=== PATIENT | male | born 1945 | race American Indian/Alaskan Native ===

== ENCOUNTER 2019-02-25 08:43 | Outpatient (CLI) | payer MEDICARE ==
--- NOTE | 2019-02-25 13:09 | Cat Scan Report ---
CT ABDOMEN AND PELVIS WITH CONTRAST HISTORY: MALIGNANT NEOPLASM OF PROSTATE. Restaging of prostate cancer. COMPARISON: None. TECHNIQUE: Axial CT images were obtained through the abdomen and pelvis after 100 cc of Omnipaque 300 intravenously. Sagittal and coronal reformatted images. All CT scans at this location are performed using CT dose reduction for ALARA by means of automated exposure control. FINDINGS: CT ABDOMEN: Lung Bases: Clear. Liver: No significant abnormality. Biliary: No significant abnormality. Spleen: No significant abnormality. Unenlarged. Pancreas: No significant abnormality. Adrenals: No significant abnormality. Kidneys: The kidneys are normal size, contour and position. No evidence for mass, cystic disease or h ydronephrosis. A 6 x 3 mm calyceal stone is noted near mid pole of the left kidney. The ureters are n ormal course and caliber. Lymphatics: No lymphadenopathy. Vasculature: No significant abnormality. Bowel/Peritoneum: No significant abnormality. No free air. No free fluid. Normal appendix. CT PELVIS: : The prostate gland is unremarkable measuring 3.9 cm in diameter. Osseous Structures: Moderate thoracolumbar spondylosis is identified. No evidence for fracture or aurea picious bony lesion. Additional Findings: A small right inguinal hernia containing fat and a small portion of the bladder dome is identified. The remainder of the bladder is unremarkable. IMPRESSION: No evidence for metastatic disease to the abdomen or pelvis. Left renal stone, nonobstructing. Small right inguinal hernia containing fat and a small segment of the bladder dome. Signer Name: Chester Quiros Jr, MD Signed: 02/25/2019 1:05 PM Workstation Name: [id number]
--- NOTE | 2019-02-25 13:26 | Nuclear Medicine Report ---
WHOLE BODY BONE SCAN HISTORY: Malignant neoplasm prostate COMPARISON: No prior exam or report is available for direct comparison. TECHNIQUE: Following administration of Tc-99m MDP, static whole body anterior and posterior delayed p hase images were acquired. RADIOPHARMACEUTICAL: 25 mCi Tc-99m MDP. FINDINGS: No significantly abnormal uptake. Normal physiologic background activity. Additional Findings: Contamination at the right distal forearm. IMPRESSION: 1. No significant abnormality. Signer Name: Messi Reyes MD Signed: 02/25/2019 1:21 PM Workstation Name: [id number]
== END 2019-02-25 08:44 | disposition home or self-care (01) ==
LOC: NM 08:43
PROVIDERS: ATTEND Urology
DX: K40.90 Unilateral inguinal hernia, without obstruction or gangrene, not specified as recurrent (principal); N20.0 Calculus of kidney; M47.814 Spondylosis without myelopathy or radiculopathy, thoracic region; C61 Malignant neoplasm of prostate
CPT/HCPCS: 74176; 78306; A9503

== ENCOUNTER 2019-05-10 06:06 | Observation (INO) | payer MEDICARE ==
--- NOTE | 2019-05-06 09:58 | Anesthesia Consultation ---
Anesthesia Consult and Med Hx Date of service: 05/10/19 - Airway Anesthetic Teeth Evaluation: Dentures (Complete upper; partial lower), Partials, Edentulous (Top) ROM Head & Neck: Adequate Mental/Hyoid Distance: Adequate Mallampati Class: Class II Intubation Access Assessment: Good - Pre-Operative Health Status ASA Pre-Surgery Classification: ASA3 Proposed Anesthetic Plan: General - Pulmonary Hx Smoking: Yes (STOPPED 1970) Hx Sleep Apnea: No (ANDREW PRE SCREEN HIGH RISK.) - Cardiovascular System Hx Hypertension: Yes (2009) Hx Coronary Artery Disease: Yes (CABG 2009; Sees director post q3 months) Hx Heart Attack/AMI: No (+Cardiac clearance on chart) Hx Heart Murmur: Yes - Other Systems Hx Cancer: Yes (Prostate)
[2019-05-06 10:14] LABS: INR 1.03 (0.87-1.13)
[2019-05-06 10:15] LABS: Partial Thromboplastin Time 27.9 Sec. (24.2-36.6)
[2019-05-06 10:17] LABS: Basophils % (Auto) 0.3 % (0.0-1.8); Eosinophils # (Auto) 0.1 K/mm3 (0.0-0.4); Eosinophils % (Auto) 3.1 % (0.0-4.3); Hematocrit 42.8 % (35.5-45.6); Hemoglobin 13.6 gm/dl (11.8-15.2); Lymphocytes # (Auto) 1.4 K/mm3 (1.2-5.4); Lymphocytes % (Auto) 29.5 % (13.4-35.0); Mean Corpuscular HGB Conc 32 % (32-34); Mean Corpuscular Volume 79 fl (84-94); Monocytes # (Auto) 0.4 K/mm3 (0.0-0.8); Monocytes % (Auto) 9.2 % (0.0-7.3); Platelet Count 151 K/mm3 (140-440); Red Blood Count 5.44 M/mm3 (3.65-5.03)
[2019-05-06 10:38] LABS: Albumin 3.9 g/dL (3.9-5); Calcium 9.4 mg/dL (8.4-10.2)
[~2019-05-10 06:06] MED LIST: BACTERIOSTATIC SODIUM CHLORIDE 0.9% 30 ML VIAL INFILTRATI ONE; LACTATED RINGERS 1,000 ML IV SCH
[2019-05-10] MEDS ORDERED: ONDANSETRON 4 MG/2 ML INJ IV PRN ×2 (07:11→10:56)
[2019-05-10] MEDS ORDERED: HYDROmorphone 1 MG/1 ML INJ IV PRN (07:11)
--- NOTE | 2019-05-10 07:11 | Anesthesia Day of Surgery ---
Anesthesia Day of Surgery - Day of Surgery Patient Examined: Yes Patient H&P Reviewed: Yes Patient is NPO: Yes
[2019-05-10] MEDS ORDERED: ROCURONIUM 50 MG/5 ML INJ IV ONE ×2 (07:12→10:32)
[2019-05-10] MEDS ORDERED: LIDOCAINE MPF (2%) 20 MG/1 ML VIAL 5 ML ONE (07:12)
[2019-05-10] MEDS ORDERED: fentaNYL 100 MCG/2 ML INJ ONE ×2 (07:12→09:50)
[2019-05-10] MEDS ORDERED: PROPOFOL 200 MG/20 ML VIAL IV ONE (07:13)
[2019-05-10] MEDS ORDERED: METHYLENE BLUE 50 MG/10 ML AMP ONE (07:22)
[2019-05-10] MEDS ORDERED: CITRIC ACID-SOD CITRATE 500 ML IV ONE (07:22)
[2019-05-10] MEDS ORDERED: THROMBIN (RECOMBINANT) 5,000 UNIT VIAL TP ONE ×2 (07:23→09:09)
[2019-05-10] MEDS ORDERED: CALCIUM CHLORIDE 1,000 MG/10 ML SYRINGE IV ONE ×2 (07:23→09:09)
[2019-05-10] MEDS ORDERED: ACETAMINOPHEN 500 MG TAB ONE (07:38)
[2019-05-10] MEDS ORDERED: ONDANSETRON 4 MG/2 ML INJ ONE (08:39)
[2019-05-10] MEDS ORDERED: dexAMETHasone 20 MG/5 ML VIAL ONE (08:39)
[2019-05-10] MEDS ORDERED: ePHEDrine SULFATE 50 MG/1 ML INJ ONE (08:53)
[2019-05-10] MEDS ORDERED: CITRIC ACID-SOD CITRATE SOLN 500 ML IV SOLN IV ONE (09:09)
[2019-05-10] MEDS ORDERED: SODIUM CHLORIDE 0.9% IRRIG SOLN 2000 ML IR ONE (09:10)
[2019-05-10] MEDS ORDERED: WATER FOR IRRIG STERILE 1,500 ML BOTTLE IR ONE (09:10)
[2019-05-10] MEDS ORDERED: METHYLENE BLUE 50 MG/10 ML AMP IV ONE (09:50)
[2019-05-10] MEDS ORDERED: NEOSTIGMINE 10MG/10 ML INJ MDV ONE (10:32)
[2019-05-10] MEDS ORDERED: GLYCOPYRROLATE 0.4 MG/2 ML INJ ONE (10:32)
[2019-05-10] MEDS ORDERED: BUPIVACAINE-EPINEPHRINE/PF 0.5%-1:200,000 (30 ML) VIAL INFILTRATI ONE ×2 (10:45→10:46)
--- NOTE | 2019-05-10 10:55 | Short Stay Summary ---
Short Stay Documentation Date of service: 05/10/19 - History H&P: obtained from office - Allergies and Medications Current Medications: Allergies heparin Allergy (Unverified 04/29/19 10:58) Unknown WAS TOLD AFTER AN OPEN HEART THAT HE WAS ALLERGIC- UNKNOWN REACTION. Penicillins Allergy (Unverified 04/29/19 10:58) Unknown WAS TOLD CHILD THAT HE WAS ALLERGIC- UNKNOWN REACTION. Home Medications Medication Instructions Recorded Confirmed Last Taken Type Aspirin EC [Halfprin EC] 81 mg PO QDAY 04/29/19 04/29/19 04/27/19 History Atorvastatin [Lipitor Tab] 40 mg PO QHS 04/29/19 04/29/19 04/27/19 History Cholecalciferol (Vitamin D3) 2,000 unit PO QDAY 04/29/19 04/29/19 04/27/19 History [Vitamin D3 2,000 UNIT CAP] Ciprofloxacin HCl [Ciprofloxacin 500 mg PO Q12HR 04/29/19 04/29/19 Unknown History TAB] Fluticasone [Flonase] 1 spray NS QDAY 04/29/19 05/10/19 1 Year Ago History ~05/10/18 HYDROcodone/APAP 5-325 [[place] 1 each PO Q6HR PRN 04/29/19 04/29/19 Unknown History 5/325] Metoprolol [Lopressor] 25 mg PO BID 04/29/19 05/10/19 05/10/19 05:30 History Active Medications Hydromorphone HCl (Dilaudid) 0.5 mg IV Q10MIN PRN PRN Reason: Pain , Severe (7-10) Stop: 05/10/19 16:00 Lactated Ringer's (Lactated Ringers) 1,000 mls @ 100 mls/hr IV DIRECT EKTA Last Admin: 05/10/19 07:00 Dose: 100 mls/hr Documented by: Ondansetron HCl (Zofran) 4 mg IV ONCE PRN PRN Reason: Nausea And Vomiting Stop: 05/10/19 16:00 - Brief post op/procedure progress note Date of procedure: 05/10/19 Pre-op diagnosis: prostate cancer Post-op diagnosis: same Procedure: robotic prostatectomy Anesthesia: GETA Surgeon: ABDELRAHMAN MATA Estimated blood loss: other (500cc) Pathology: list (prostate) Specimen disposition: to lab Condition: stable - Hospital course Hospital course: pt has cipro & norco post op info on chart jake removed family at bedside home with galindo - Disposition Condition at discharge: Stable Short Stay Discharge Plan Follow up with: LILIA ESTRADA MD [Primary Care Provider] - 7 Days
[2019-05-10] MEDS ORDERED: MORPHINE 2 MG/1 ML INJ IV PRN (10:56)
[2019-05-10] MEDS ORDERED: ACETAMINOPHEN 325 MG TAB PO PRN (10:56)
[2019-05-10] MEDS ORDERED: ZOLPIDEM 5 MG TAB PO PRN (10:56)
[2019-05-10] MEDS ORDERED: NALOXONE 0.4 MG/1 ML INJ IV PRN (10:56)
--- NOTE | 2019-05-10 11:58 | Operative Report ---
PREOPERATIVE DIAGNOSIS: Prostate cancer, [place] 8. POSTOPERATIVE DIAGNOSIS: Prostate cancer, Muk[place] 8. PROCEDURE: Robotic-assisted laparoscopic prostatectomy. SURGEON: Dr. De Anda. JOB ANALYSIS MANAGER: Le Ellsworth. ANESTHESIA: General. ESTIMATED BLOOD LOSS: 500 mL. FLUIDS: Crystalloid, 300 of Cell Saver. Joaquim-Alvarez drain x 1. COMPLICATIONS: No complications. INDICATIONS: This patient is a 73-year-old gentleman referred by Dr. Deandre Bhagat for evaluation of an elevated PSA and PSA was 4.7. He underwent transrectal ultrasound and biopsy of prostate in 03/2017. He was found [place] 3+4 prostate cancer. We discussed options. He elected to follow conservatively, which we did. His PSA in 10/2018 went to 5.5. We repeated his biopsy in 01/2019 and it was now a [place] 8. He was informed would not observe at this point. Bone scan and CT scan were negative. Discussed options and he agreed to proceed with surgical intervention. Cardiac clearance by Dr. Deandre Bhagat. Also of note, he had an incidental right inguinal hernia. DESCRIPTION OF PROCEDURE: The patient was taken to the operative suite, placed in a supine position. After adequate general anesthesia, he was placed in a modified dorsal lithotomy position, prepped and draped in a sterile fashion. Le Ellsworth was present throughout the case to assist with surgical dissection throughout the procedure. Garcia catheter was placed on the operative field. Vanessa-colored urine could be appreciated. A 1 cm supraumbilical incision was made. Towel clips were used. A Veress needle drop test was performed with no signs of intra-abdominal injury. Opening pressure was 4 cm of water. Insufflation of the abdomen with pressure of 15 cm of water was performed without difficulty. A 15 cm cephalad to pubic symphysis was marked as well as an 8 cm and then additional 8 cm lateral. Robotic ports were then placed. The 8 mm robotic ports were placed on the left, additional one on the right as well as two helper ports, a 12 mm helper port as well as a 5 mm on the right side. The patient was then placed in exaggerated Trendelenburg position. A 0-degree lens was used and a 10 mm port was placed first in the supraumbilical incision followed by the additional marked areas for port placement. No obvious intra-abdominal injury could be appreciated. The patient was noted to have a reducible small hernia on the right side and it was incidental. Second arch was identified, exposing the prostate and bladder. This was scored in a horizontal position. Seminal vesicles and vas deferens were dissected out. Vas deferens was transected. Next, attention was taken to the anterior abdominal wall laterally. Lateral umbilical ligament was scored bilaterally and the bladder flap was dropped. Dorsal vein complex was identified. It was transected with a 55 mm vascular stapler. Endopelvic fascia was opened bilaterally without difficulty. The patient had a significant amount of adipose tissue and it was very hard to identify the neurovascular bundle, but this dissection was done in a thermal fashion. Anterior bladder neck was scored after manipulation of the Garcia could be appreciated. It was deflated and then used for anterior traction. Posterior bladder neck was transected exposing the seminal vesicles and vas deferens. Ureteral orifices could be appreciated bilaterally. Lateral pedicles were then taken down with a vascular stapler bilaterally. The rest of the dissection was sharped using scissors to the apex of the prostate. Dorsal vein complex was transected and dissection taken down to the apex of the prostate anteriorly. The urethra was opened. Garcia catheter was pulled out to the apex of the prostate. Posterior urethra was transected as well as the blunt and sharp dissection was used to free up the prostate. It was then placed in the EndoCatch bag and retracted laterally. Copious irrigation was performed. Adequate hemostasis achieved. Bladder neck was then reconstructed with a 2-0 Vicryl at the 5 o'clock and 6 o'clock positions. A 12 o'clock helper stitch was also used. Double armed V-Loc stitch was placed at the 6 o'clock position of the prostate of the bladder neck and corresponding aspect of the urethra and a running stitch was performed. A new 18-Persian Garcia catheter was placed into the urethra and bladder without difficulty. The anastomotic stitch was cinched down. A 15 mL of sterile water in the balloon, it was irrigated. No clot, no leak. Bladder neck suspension was performed using the double armed V-Loc placed in the posterior aspect of the pubic symphysis. The needles were removed. Platelet rich plasma and platelet poor plasma was injected around the anastomosis as well as a platelet membrane. A 10 mm Joaquim-Alvarez drain was brought out through the left port, tied into position with 2-0 silk. The robotic ports were undocked. No obvious bleeding could be appreciated. The supraumbilical incision was extended slightly to allow removal of the prostate in the EndoCatch bag. A 0 Vicryl [id number] stitch was used to close the supraumbilical stitch incision. The rest of the incision skin was closed with 2-0 Vicryl in interrupted fashion. Side port on the Garcia catheter was folded over and tied with 0 silk. The patient tolerated the procedure well and was extubated and taken to recovery room. [facility] will be observed overnight [facility] [place] JOB# [id number] [facility]
[2019-05-10] MEDS: FLUTICASONE PROPIONATE NASAL SPRAY 16 GM NS SCH (12:35)
--- NOTE | 2019-05-10 12:38 | Post Anesthesia Evaluation ---
- Post Anesthesia Evaluation Patient Participated: Yes Airway Patent: Yes Stable Respiratory Function: Yes Nausea/Vomiting: No Temp > 96.8F: Yes Pain Manageable: Yes Adequeate Hydration: Yes Anesthesia Complications: No
[2019-05-10] MEDS: SODIUM CHLORIDE 0.9% 1000 ML 1,000 ML IV SCH ×2 (12:54→21:35)
--- NOTE | 2019-05-10 14:05 | Consultation ---
History of Present Illness - Reason for Consult Consult date: 05/10/19 HTN Requesting physician: ABDELRAHMAN DE ANDA - History of Present Illness 73 YO Male with HTN, CAD, CaP S/P Prostatectomy. Consult placed by Dr. De Anda for HTN. Pt seen and evaluated in his room. Pt denies fever, chills, CP, Palpitations, NVD, Productive cough, or recent ill contacts. No reported nursing events. Pt denies pain. Past History Past Medical History: CAD, cancer, hypertension Past Surgical History: Other (Prostatectomy) Social history: , lives with family. denies: smoking, alcohol abuse, prescription drug abuse Family history: CAD, hypertension Medications and Allergies Allergies Allergy/AdvReac Type Severity Reaction Status Date / Time heparin Allergy Unknown Unverified 04/29/19 10:58 Penicillins Allergy Unknown Unverified 04/29/19 10:58 Home Medications Medication Instructions Recorded Confirmed Last Taken Type Aspirin EC [Halfprin EC] 81 mg PO QDAY 04/29/19 04/29/19 04/27/19 History Atorvastatin [Lipitor Tab] 40 mg PO QHS 04/29/19 04/29/19 04/27/19 History Cholecalciferol (Vitamin D3) 2,000 unit PO QDAY 04/29/19 04/29/19 04/27/19 History [Vitamin D3 2,000 UNIT CAP] Ciprofloxacin HCl [Ciprofloxacin 500 mg PO Q12HR 04/29/19 04/29/19 Unknown His tory TAB] Fluticasone [Flonase] 1 spray NS QDAY 04/29/19 05/10/19 1 Year Ago History ~05/10/18 HYDROcodone/APAP 5-325 [[place] 1 each PO Q6HR PRN 04/29/19 04/29/19 Unknown History 5/325] Metoprolol [Lopressor] 25 mg PO BID 04/29/19 05/10/19 05/10/19 05:30 History Active Meds: Active Medications Acetaminophen (Tylenol) 650 mg PO Q4H PRN PRN Reason: Pain, Mild (1-3)/Fever > 100.5 Acetaminophen/Hydrocodone Bitart ([place] 5/325) 2 each PO Q4H PRN PRN Reason: Pain, Moderate (4-6) Atorvastatin Calcium (Lipitor) 40 mg PO QHS EKTA Cholecalciferol (Vitamin D3) 2,000 unit PO DAILY [facility] Fluticasone Propionate (Flonase) 50 mcg NS QDAY [facility] Last Admin: 05/10/19 12:35 Dose: Not Given Documented by: Hydromorphone HCl (Dilaudid) 0.5 mg IV Q10MIN PRN PRN Reason: Pain , Severe (7-10) Stop: 05/10/19 16:00 Last Admin: 05/10/19 11:30 Dose: 0.5 mg Documented by: Lactated Ringer's (Lactated Ringers) 1,000 mls @ 100 mls/hr IV DIRECT [facility] Last Admin: 05/10/19 07:00 Dose: 100 mls/hr Documented by: Sodium Chloride (Nacl 0.9% 1000 Ml) 1,000 mls @ 100 mls/hr IV DIRECT [facility] Last Admin: 05/10/19 12:54 Dose: 100 mls/hr Documented by: Metoprolol Tartrate (Lopressor) 25 mg PO BID [facility] Morphine Sulfate (Morphine) 2 mg IV Q4H PRN PRN Reason: Pain, Moderate (4-6) Naloxone HCl (Narcan 0.4 Mg/1 Ml) 0.1 mg IV Q2MIN PRN PRN Reason: Res Rate </= 8 or 02 SAT < 92% Ondansetron HCl (Zofran) 4 mg IV ONCE PRN PRN Reason: Nausea And Vomiting Stop: 05/10/19 16:00 Ondansetron HCl (Zofran) 4 mg IV Q8H PRN PRN Reason: Nausea And Vomiting Zolpidem Tartrate (Ambien) 5 mg PO QHS PRN PRN Reason: Sleep Review of Systems Constitutional: no weight loss, no weight gain, no fever, no chills Ears, nose, mouth and throat: no ear pain, no ear discharge, no tinnitis, no decreased hearing, no nasal congestion Cardiovascular: no chest pain, no orthopnea, no palpitations, no rapid/irregular heart beat, no edema, no syncope, no lightheadedness, no shortness of breath Gastrointestinal: no nausea, no vomiting, no diarrhea, no constipation Genitourinary Male: no flank pain, no discharge, no urinary frequency, no nocturia Rectal: no pain, no incontinence, no bleeding Musculoskeletal: no neck stiffness, no neck pain, no shooting arm pain, no arm numbness/tingling, no low back pain, no shooting leg pain, no leg numbness/tingling Integumentary: no rash, no pruritis, no sores, no jaundice Neurological: no transient paralysis, no paralysis, no weakness, no parathesias, no tingling, no tremors Psychiatric: no anxiety, no memory loss, no change in sleep habits, no sleep disturbances, no insomnia, no change in appetite, no suicidal ideation, no disorientation Endocrine: no cold intolerance, no excessive thirst, no polydipsia, no nocturia, no flushing Hematologic/Lymphatic: no easy bruising, no lymphadenopathy, no lymphedema Allergic/Immunologic: no urticaria, no allergic rhinitis, no persistent infections, no anaphylaxis, no angioedema Exam - Constitutional Vitals: Temp Pulse Resp BP Pulse Ox 97.3 F L 63 18 107/56 100 05/10/19 12:17 05/10/19 12:17 05/10/19 12:17 05/10/19 12:17 05/10/19 12:17 General appearance: Present: no acute distress, well-nourished - EENT Eyes: Present: PERRL ENT: hearing intact, clear oral mucosa - Neck Neck: Present: supple, normal ROM - Respiratory Respiratory effort: normal Respiratory: bilateral: CTA - Cardiovascular Heart Sounds: Present: S1 & S2. Absent: rub, click - Extremities Extremities: pulses symmetrical, No edema Peripheral Pulses: within normal limits - Abdominal General gastrointestinal: Present: soft, non-tender, non-distended, normal bowel sounds Male genitourinary: Present: normal - Integumentary Integumentary: Present: clear, warm, dry - Musculoskeletal Musculoskeletal: gait normal, strength equal bilaterally - Psychiatric Psychiatric: appropriate mood/affect, intact judgment & insight - Neurologic Neurologic: CNII-XII intact, moves all extremities Results - Labs CBC & Chem 7: 05/11/19 05:18 05/11/19 05:18 Assessment and Plan - Patient Problems (1) Hypertension Status: Chronic Qualifiers: Hypertension type: essential hypertension Qualified Code(s): I10 - Essential (primary) hypertension Plan to address problem: Monitor BP q shift, continue medical management. (2) Dyslipidemia Status: Acute Plan to address problem: lowfat diet, low cholesterol diet, statin therapy as indicated (3) Prostate cancer Status: Acute Plan to address problem: S/P Prostatectomy, pain control.
[2019-05-10] MEDS ORDERED: diphenhydrAMINE 50 MG CAP PO NR (19:00)
[2019-05-10] MEDS: HYDROcodone/ACETAMINOPHEN 5-325 MG TAB PO PRN (21:33)
[2019-05-11] MEDS: FLUTICASONE PROPIONATE NASAL SPRAY 16 GM NS SCH ×2 (00:31→10:11)
[2019-05-11] MEDS: METOPROLOL TARTRATE 25 MG TAB PO SCH ×2 (00:35→10:15)
[2019-05-11 06:07] LABS: Hematocrit 36.7 % (35.5-45.6); Hemoglobin 11.6 gm/dl (11.8-15.2); Lymphocytes # (Auto) 0.9 K/mm3 (1.2-5.4); Lymphocytes % (Auto) 10.5 % (13.4-35.0); Mean Corpuscular HGB Conc 32 % (32-34); Mean Corpuscular Volume 78 fl (84-94); Monocytes % (Auto) 10.6 % (0.0-7.3); Platelet Count 138 K/mm3 (140-440); Red Blood Count 4.68 M/mm3 (3.65-5.03); Red Cell Distribution Width 15.2 % (13.2-15.2)
[2019-05-11 07:04] LABS: Calcium 8.1 mg/dL (8.4-10.2)
[2019-05-11] MEDS: SODIUM CHLORIDE 0.9% 1000 ML 1,000 ML IV SCH (08:50)
[2019-05-11] MEDS ORDERED: CHOLECALCIFEROL (VIT D3) 1000 UNIT TAB PO SCH (10:00)
[2019-05-11] MEDS ORDERED: NON-FORMULARY EACH (Cholecalciferol (Vitamin D3) [Vitamin D3 2,000 Unit Cap] 2,000 UNIT) PO SCH (10:00)
[2019-05-11 11:42] VITALS: BP 115/70
--- NOTE | 2019-05-11 12:49 | Progress Note ---
Assessment and Plan Assessment and plan: 73-year-old male patient with the history of prostate cancer who was admitted by urology service and underwent Robotic-assisted laparoscopic prostatectomy.Patient had an uncomplicated postop stay, followed by urologist, Patient blood pressures closely monitored medications optimized Symptoms significantly improved, today Patient feels better no new complaints vital signs stable physical examination prior to discharge is unremarkable Hemodynamically clinically stable at discharge, Urology cleared and discharged the patient Patient will follow up with primary care physician, urologist per schedule - Patient Problems (1) Prostate cancer Status: Acute (2) S/P prostatectomy Status: Acute (3) Hypertension Status: Chronic (4) Dyslipidemia Status: Acute History Interval history: Patient seen and examined medical records reviewed No new events reported by the nursing Alert awake oriented 3 Vital signs noted Hospitalist Physical - Constitutional Vitals: Temp Pulse Resp BP Pulse Ox 98.0 F 80 18 115/70 97 05/11/19 11:40 05/11/19 11:40 05/11/19 11:40 05/11/19 11:40 05/11/19 11:40 General appearance: Present: no acute distress, well-nourished - EENT Eyes: Present: PERRL, EOM intact - Neck Neck: Present: supple, normal ROM - Respiratory Respiratory effort: normal Respiratory: negative: rales, rhonchi, wheezing - Cardiovascular Rhythm: regular Heart Sounds: Present: S1 & S2 - Extremities Extremities: no ischemia, No edema - Abdominal General gastrointestinal: soft, non-tender, non-distended, normal bowel sounds - Integumentary Integumentary: Present: clear, warm - Psychiatric Psychiatric: appropriate mood/affect, cooperative - Neurologic Neurologic: CNII-XII intact, moves all extremities Results - Labs CBC & Chem 7: 05/11/19 05:18 05/11/19 05:18 Labs: Laboratory Last Values WBC 9.0 K/mm3 (4.5-11.0) 05/11/19 05:18 RBC 4.68 M/mm3 (3.65-5.03) 05/11/19 05:18 Hgb 11.6 gm/dl (11.8-15.2) L 05/11/19 05:18 Hct 36.7 % (35.5-45.6) 05/11/19 05:18 MCV 78 fl (84-94) L 05/11/19 05:18 MCH 25 pg (28-32) L 05/11/19 05:18 MCHC 32 % (32-34) 05/11/19 05:18 RDW 15.2 % (13.2-15.2) 05/11/19 05:18 Plt Count 138 K/mm3 (140-440) L 05/11/19 05:18 Lymph % (Auto) 10.5 % (13.4-35.0) L 05/11/19 05:18 [place] % (Auto) 10.6 % (0.0-7.3) H 05/11/19 05:18 Eos % (Auto) 0.0 % (0.0-4.3) 05/11/19 05:18 Baso % (Auto) 0.0 % (0.0-1.8) 05/11/19 05:18 Lymph # 0.9 K/mm3 (1.2-5.4) L 05/11/19 05:18 [place] # 1.0 K/mm3 (0.0-0.8) H 05/11/19 05:18 Eos # 0.0 K/mm3 (0.0-0.4) 05/11/19 05:18 Baso # 0.0 K/mm3 (0.0-0.1) 05/11/19 05:18 Seg Neutrophils % 78.9 % (40.0-70.0) H 05/11/19 05:18 Seg Neutrophils # 7.1 K/mm3 (1.8-7.7) 05/11/19 05:18 PT 13.2 Sec. (12.2-14.9) 05/06/19 09:30 INR 1.03 (0.87-1.13) 05/06/19 09:30 APTT 27.9 Sec. (24.2-36.6) 05/06/19 09:30 Sodium 140 mmol/L (137-145) 05/11/19 05:18 Potassium 4.7 mmol/L (3.6-5.0) 05/11/19 05:18 Chloride 110.0 mmol/L (98-107) H 05/11/19 05:18 Carbon Dioxide 23 mmol/L (22-30) 05/11/19 05:18 12 mmol/L 05/11/19 05:18 BUN 13 mg/dL (9-20) 05/11/19 05:18 1.4 mg/dL (0.8-1.5) 05/11/19 05:18 Estimated GFR 60 ml/min 05/11/19 05:18 9 % 05/11/19 05:18 Glucose 122 mg/dL (75-100) H 05/11/19 05:18 Calcium 8.1 mg/dL (8.4-10.2) L 05/11/19 05:18 0.30 mg/dL (0.1-1.2) 05/06/19 09:30 AST 19 units/L (5-40) 05/06/19 09:30 ALT 21 units/L (7-56) 05/06/19 09:30 90 units/L (35-129) 05/06/19 09:30 6.8 g/dL (6.3-8.2) 05/06/19 09:30 3.9 g/dL (3.9-5) 05/06/19 09:30 1.3 % 05/06/19 09:30 Blood Type O NEGATIVE 05/10/19 07:00 Antibody Screen Negative 05/10/19 07:00 Active Medications - Current Medications Current Medications: Generic Name Dose Route Start Last Admin Trade Name Stepahneq PRN Reason Stop Dose Admin Acetaminophen 650 mg 05/10/19 10:56 Tylenol PO Q4H PRN Pain, Mild (1-3)/Fever > 100.5 Acetaminophen/Hydrocodone Bitart 2 each 05/10/19 10:56 05/10/19 21:33 [place] 5/325 PO 2 each Q4H PRN Administration Pain, Moderate (4-6) Atorvastatin Calcium 40 mg 05/10/19 22:00 05/10/19 21:33 Lipitor PO 40 mg QHS EKTA Administration Cholecalciferol 2,000 unit 05/11/19 10:00 05/11/19 10:11 Vitamin D3 PO 2,000 unit DAILY EKTA Administration Fluticasone Propionate 50 mcg 05/10/19 12:00 05/11/19 10:11 Flonase NS 50 mcg QDAY EKTA Administration Lactated Ringer's 1,000 mls @ 100 mls/hr 05/09/19 21:00 05/10/19 07:00 Lactated Ringers IV 100 mls/hr DIRECT EKTA Administration Sodium Chloride 1,000 mls @ 100 mls/hr 05/10/19 11:00 05/11/19 08:50 Nacl 0.9% 1000 Ml IV 100 mls/hr DIRECT EKTA Administration Metoprolol Tartrate 25 mg 05/10/19 22:00 05/11/19 10:15 Lopressor PO Not Given BID EKTA Morphine Sulfate 2 mg 05/10/19 10:56 Morphine IV Q4H PRN Pain, Moderate (4-6) Naloxone HCl 0.1 mg 05/10/19 10:56 Narcan 0.4 Mg/1 Ml IV Q2MIN PRN Res Rate </= 8 or 02 SAT < 92% Ondansetron HCl 4 mg 05/10/19 10:56 Zofran IV Q8H PRN Nausea And Vomiting Zolpidem Tartrate 5 mg 05/10/19 10:56 Ambien PO QHS PRN Sleep
[2019-05-11] MEDS: HYDROcodone/ACETAMINOPHEN 5-325 MG TAB PO PRN (13:31)
== END 2019-05-11 15:40 | disposition home or self-care (01) ==
LOC: OR 06:06 → 3B-SURG 10:56
PROVIDERS: ADMIT Urology; ATTEND Urology
DX: C61 Malignant neoplasm of prostate (principal); I10 Essential (primary) hypertension; E78.5 Hyperlipidemia, unspecified
CPT/HCPCS: 36415; 52601; 80048; 80053; 85025; 85610; 85730; 86850; 86900; 86901; 88309; 88341; 88342; 96374; A4217; A9270; G0378; J1100; J1170; J1956; J2270; J2405; J2704; J2710; J3010; J7030; J7120; Q9968; S2900